=== PATIENT | male | born 1935 | race Caucasian/White ===

== ENCOUNTER 2017-01-22 08:44 | Outpatient (CLI) | payer OTHER | END 2017-01-22 08:45 | disposition home or self-care (01) | LOC: CAR 08:44 | PROVIDERS: ATTEND Family Medicine | DX: J96.11 Chronic respiratory failure with hypoxia (principal) | CPT/HCPCS: 94761 ==

== ENCOUNTER 2017-06-16 12:34 | Outpatient (CLI) | END 2017-06-16 12:35 | disposition home or self-care (01) | LOC: CAR 12:34 | PROVIDERS: ATTEND Family Medicine | DX: J96.11 Chronic respiratory failure with hypoxia (principal) | CPT/HCPCS: 94761 ==

== ENCOUNTER → 2017-08-11 | Outpatient (POV) | LOC: OUTPT 00:01 | PROVIDERS: ATTEND Otolaryngology | DX: H91.90 Unspecified hearing loss, unspecified ear (principal) ==